=== PATIENT | male | born 1940 | race Caucasian/White ===

== ENCOUNTER 2019-03-15 11:41 | Observation (INO) | payer BC, MEDICARE ==
[2019-03-15 12:24] LABS: #Basophils 0.1 thou/uL (0.0-0.2); #Eosinphils 0.1 thou/uL (0.0-0.7); #Lymphocytes 1.6 thou/uL (1.20-3.40); #Monocytes 0.3 thou/uL (0.11-0.59); #Neutrophils 4.5 thou/uL (1.40-6.50); %Basophils 0.8 % (0.0-1.0); %Eosinophils 1.8 % (0.0-10.0); %Lymphocytes 24.6 % (21.0-51.0); %Monocytes 5.2 % (0.0-10.0); %Neutrophils 67.6 % (42.0-75.0); Hemoglobin 15.9 g/dL (14.0-18.0); Mean Corpuscular HGB CONC 34.4 g/dL (32.0-36.0); Mean Corpuscular Hemoglobin 31.1 pg (27.0-31.0); Mean Corpuscular Volume 90.4 fL (78.0-98.0); Mean Platelet Volume 7.7 fL (7.4-10.4); Platelet Count 176 thou/uL (130-400); Red Blood Cell (RBC) Count 5.12 mill/uL (4.70-6.10); White Blood Cell (WBC) Count 6.6 thou/uL (4.8-10.8)
[2019-03-15 12:50] LABS: ALT (SGPT) 24 U/L (8-55); AST (SGOT) 20 U/L (5-34); Albumin 4.2 g/dL (3.4-4.8); Alkaline Phosphatase 89 U/L (40-110); Anion Gap 11 mmol/L (10-20); BUN (Urea Nitrogen) 18 mg/dL (8.4-25.7); Bilirubin, Total 0.6 mg/dL (0.2-1.2); Calc. Creatinine Clearance 0 mL/min (70-130); Calcium 8.7 mg/dL (7.8-10.44); Carbon Dioxide 25 mmol/L (23-31); Chloride 105 mmol/L (98-107); Estimated GFR-MDRD 89; Globulin 2.4 g/dL (2.4-3.5); Glucose 108 mg/dL (83-110); Potassium 3.7 mmol/L (3.5-5.1); Protein, Total 6.6 g/dL (5.8-8.1); Sodium 137 mmol/L (136-145)
--- NOTE | 2019-03-15 13:21 | RAD ---
CHEST 1 VIEW: Date: 03/15/2019 INDICATION: History of dizziness and thigh pain. COMPARISON: None. FINDINGS: There is mild cardiomegaly. Lungs are clear. No pleural effusion is evident. No acute osseous abnorma lity is noted. IMPRESSION: Mild cardiomegaly without evidence of cardiac decompensation. POS: CET
--- NOTE | 2019-03-15 13:24 | CT ---
CT BRAIN WITHOUT CONTRAST: Date: 03/15/2019 INDICATION: History of dizziness and thigh pain. COMPARISON: None. FINDINGS: The extracranial soft tissues are normal appearing. No definite acute infarct, hemorrhage, or hydrocephalus is present. No midline shift is evident. Basi lar cisterns are patent. Mastoid air cells are clear. Small mucus retention cyst seen within the righ t maxillary sinuses. The remaining visualized portions of the paranasal sinuses are clear. Skull inta ct. IMPRESSION: No acute intracranial abnormality. POS: CET
[2019-03-15] MEDS ORDERED: Aspirin Chewable 81 MG TAB ONE (14:45)
[2019-03-15] MEDS ORDERED: hydrALAZINE 20 MG/ML VIAL SLOW IVP PRN (14:50)
--- NOTE | 2019-03-15 15:16 | ULT ---
EXAM: Left lower extremity venous Doppler HISTORY: History of deep vein thrombosis. Patient currently on blood thinners. FINDINGS: Grayscale, color-flow, Doppler evaluation, spectral analysis of the left lower extremity venous struc tures is performed with 2-D imaging. The left common femoral, superficial femoral, popliteal, posterior tibial, proximal greater saphenous and profunda femoral veins are imaged. There is decreased lumen compressibility involving the left lower extremity popliteal vein. Flow is s een within the left lower extremity popliteal vein. There is normal luminal compressibility, flow, and augmentation in the remaining visualized deep veno us structures of the left lower extremity. IMPRESSION: 1. Nonocclusive deep vein thrombosis left popliteal vein. 2. Above findings discussed with nurse Susanne in the emergency department on 03/15/2019 at 1511 hour s.
--- NOTE | 2019-03-15 16:22 | HP ---
PRIMARY CARE PROVIDER: Sandra Hernandez. CHIEF COMPLAINT: Dizziness. HISTORY OF PRESENT ILLNESS: Mr. Geiger is a pleasant 78-year-old gentleman, who was seen at [facility] on March 15, 2019, after he was sent to the emergency room by his astrophysics teacher, Dr. Mills from office. The patient reports that he started having dizziness this morning. He mainly has it while he is sitting or standing. He currently does not have any dizziness. He also reports pain in his left lower extremity and reports that he was diagnosed with DVT in the left lower extremity 4 or 5 months ago. He also reports that his dizziness is worse with change in his head position. He denies any nausea. He denies any fevers or chills. REVIEW OF SYSTEMS: All systems were reviewed and found to be negative except for the pertinent positives mentioned above. PAST MEDICAL HISTORY: Cerebrovascular accident in 2004, cervical dystonia, Rajput esophagus, gastroesophageal reflux disease, benign prostatic hypertrophy, hypertension and dyslipidemia. SURGICAL HISTORY: Prostate procedure. SOCIAL HISTORY: The patient smokes less than one pack of cigarettes a day. He drinks alcohol occasionally. He denies recreational drug use. ALLERGIES: NO KNOWN DRUG ALLERGIES. CURRENT MEDICATIONS: 1. Diazepam 10 mg 3 times a day. 2. Losartan/hydrochlorothiazide 50/12.5 mg daily. 3. Omeprazole 40 mg daily as needed. 4. Eliquis 5 mg 2 times a day. 5. Lipitor 20 mg daily. FAMILY HISTORY: The patient denied any family history of premature coronary artery disease. PHYSICAL EXAMINATION: GENERAL: On examination, Mr. Geiger is awake and alert, not in acute distress. VITAL SIGNS: Blood pressure is 109/81, pulse 59, respiratory rate 18, and oxygen saturation 96% on room air. He is afebrile. EYES: No scleral icterus, no conjunctival pallor. ENT: Moist mucosal membranes. No oropharyngeal erythema or exudates. NECK: Supple, nontender, trachea is midline. RESPIRATORY: Accessory muscles of breathing are not active. Chest wall movements are symmetric bilaterally. LUNGS: Clear to auscultation without wheeze, rhonchi, or crepitations. CARDIOVASCULAR: S1 and S2 are heard, regular. Peripheral pulses are palpable. ABDOMEN: Soft, nontender, bowel sounds heard. NEUROLOGIC: Cranial nerves 2 through 12 are intact. No focal motor or sensory deficits. Deep tendon reflexes 2+. MUSCULOSKELETAL: Power is 5/5 in all 4 extremities. SKIN: No rashes or subcutaneous nodules. LYMPHATIC: No cervical lymphadenopathy. PSYCHIATRIC: Normal mood, normal affect, the patient is oriented to person, place, and time. LABORATORY DATA: Mr. Geiger's labs and investigations were reviewed. I reviewed his electrocardiogram, which shows normal sinus rhythm, no ST changes to suggest an acute coronary syndrome. I also reviewed his chest x-ray, which did not show any pulmonary infiltrates. Noncontrast CT scan of the brain did not show any acute intracranial abnormality. He has an unremarkable CBC and normal comprehensive metabolic profile. Troponin-I is negative. ASSESSMENT AND PLAN: Mr. Geiger is a pleasant 78-year-old gentleman, who was seen at [facility] on March 15, 2019. His problem list includes: 1. Dizziness: Mr. Geiger is presenting with dizziness, differential diagnosis includes central and peripheral etiology for vertigo. He will be admitted to the hospital and started on meclizine. We will also request a Neurology consult, MRI of the brain and 2D echocardiogram. 2. History of deep venous thrombosis: We will continue Eliquis. Repeat lower extremity Doppler has been ordered. 3. Dyslipidemia: Continue atorvastatin. 4. Gastroesophageal reflux disease: Continue omeprazole. 5. Hypertension: Resume losartan/hydrochlorothiazide, monitor vital signs and titrate antihypertensives as needed. 6. Tobacco abuse: The patient has been counseled regarding tobacco cessation. Start nicotine replacement therapy. Many thanks for allowing me to participate in your patient's care. Please feel free to contact me with any questions or concerns. LEVEL OF RISK: High. LEVEL OF COMPLEXITY: High. Job ID: [id number]
--- NOTE | 2019-03-15 16:48 | MRI ---
MRI BRAIN WITHOUT CONTRAT: Date: 03/15/2019 HISTORY: Dizziness. TIA. FINDINGS: Correlation is made with the CT scan from earlier today. No restricted diffusion is seen. No evidence of infarct, hemorrhage, midline shift, or abnormal extra -axial fluid collections are noted. The ventricular size is appropriate and the basilar cisterns are patent. There is mild mucosal disease in the right maxillary sinus. IMPRESSION: No evidence of acute intracranial process. POS: OFF
[2019-03-15 19:48] VITALS: BMI 25.5
[2019-03-15] MEDS ORDERED: Atorvastatin Calcium 20 MG TAB PO SCH (21:00)
[2019-03-15] MEDS: Apixaban 5 MG TAB PO SCH (21:04)
[2019-03-15] MEDS: Meclizine HCl 25 MG TAB PO SCH (21:04)
[2019-03-15] MEDS ORDERED: Diazepam 5 MG TAB PO SCH (21:15)
[2019-03-16 05:05] LABS: Cardiac Risk 6.1 (Less than 4.5)
[2019-03-16] MEDS: Meclizine HCl 25 MG TAB PO SCH (05:18)
[2019-03-16] MEDS ORDERED: Diazepam 5 MG TAB PO SCH (09:00)
[2019-03-16] MEDS ORDERED: Nicotine 21 MG PATCH TD SCH (09:00)
--- NOTE | 2019-03-16 10:02 | ULT ---
BILATERAL CAROTID DUPLEX ULTRASOUND: HISTORY: TIA TECHNIQUE: Grayscale, color-flow and spectral Doppler ultrasound imaging of the extracranial carotid artery syst ems was performed bilaterally. FINDINGS: There is plaque formation on either side. The peak systolic velocity in the right ICA measures 41 cm/s with an end-diastolic velocity of 16 cm/ s and a systolic ratio of 0.65. The peak systolic velocity in the left ICA measures 50 cm/s with an end-diastolic velocity of 22 cm/s and a systolic ratio of 0.65. Flow in both vertebral arteries remains antegrade. IMPRESSION: No evidence of hemodynamically significant stenosis
[2019-03-16] MEDS: Apixaban 5 MG TAB PO SCH (10:04)
[2019-03-16 13:25] VITALS: BP 142/95; TEMP 98
--- NOTE | 2019-03-17 00:48 | DIS ---
DATE OF ADMISSION: 03/15/2019 DATE OF DISCHARGE: 03/16/2019 PRIMARY CARE PROVIDER: Sandra Hernandez NP DISCHARGE DIAGNOSES: 1. Vertigo. 2. Dyslipidemia. CONDITION OF PATIENT ON THE DAY OF DISCHARGE: Stable. I assessed Mr. Geiger on the day of discharge. He denies any vertigo. He denies any chest pain or shortness of breath. Vital signs are stable. S1 and S2 are heard, regular. Lungs are clear to auscultation bilaterally. DISCHARGE MEDICATIONS: 1. Apixaban 5 mg 2 times a day. 2. Gabapentin 300 mg 3 times a day. 3. Losartan/hydrochlorothiazide 50/12.5 mg daily. 4. Lovastatin 40 mg daily. 5. Omeprazole 40 mg daily. 6. Meclizine 20 mg at bedtime as needed. POST ACUTE CARE FOLLOWUP: With primary care provider in 3 days. DIET: Heart healthy. ACTIVITY: As tolerated. HOSPITAL COURSE: Mr. Geiger is a pleasant 78-year-old gentleman, who was admitted to [facility] on 03/15/2019, for vertigo. MRI of the brain did not show any acute intracranial process. 2D echocardiogram showed left ventricular ejection fraction of 55% to 60%, normal left ventricular size, normal left atrium size and no evidence of mitral valve stenosis. He had trace mitral regurgitation, and structurally normal aortic valve with no significant stenosis or regurgitation. He had trace tricuspid regurgitation. He improved after being started on meclizine. He is being discharged home in a stable condition. He has been advised to follow up with his neurologist as outpatient. During this hospitalization, fasting lipid profile showed triglycerides 159, cholesterol 170, LDL cholesterol 110, and HDL cholesterol 28. Many thanks for allowing me to participate in your patient's care. Please feel free to contact me with any questions or concerns. DISCHARGE DESTINATION: Home. Job ID: [id number]
== END 2019-03-16 14:15 | disposition home or self-care (01) ==
LOC: ERS 11:41 → ERHOLD 14:35 → 2SE 19:30
PROVIDERS: ADMIT Internal Medicine; ATTEND Internal Medicine
DX: R42 Dizziness and giddiness (principal); I10 Essential (primary) hypertension; E78.5 Hyperlipidemia, unspecified; F17.210 Nicotine dependence, cigarettes, uncomplicated; K21.9 Gastro-esophageal reflux disease without esophagitis; Z79.01 Long term (current) use of anticoagulants; Z79.899 Other long term (current) drug therapy; Z86.718 Personal history of other venous thrombosis and embolism; Z86.73 Personal history of transient ischemic attack (TIA), and cerebral infarction without residual deficits
CPT/HCPCS: 36415; 70450; 70551; 71045; 80053; 80061; 84484; 85025; 93005; 93306; 93880; G0378; J8597